=== PATIENT | female | born 1950 | race Caucasian/White ===

== ENCOUNTER 2018-01-21 16:24 | Emergency (ER) | payer OTHER, MEDICARE ==
[2018-01-21] MEDS ORDERED: HYDROmorphONE/DILAUDID 1 MG/ML INJ IVP ONE (16:49)
[2018-01-21] MEDS ORDERED: ONDANSETRON 4 MG/2 ML VIAL IVP ONE ×2 (16:49→18:33)
[2018-01-21] MEDS ORDERED: NS 1,000 ML IV ONE (16:49)
[2018-01-21 16:57] VITALS: TEMP 98.4
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
[2018-01-21 17:04] LABS: PLATELET COUNT 315 10^3/uL (150-400)
[2018-01-21 17:14] LABS: INR 0.92 (0.83-1.16); PROTIME(PATIENT) 12.6 SEC (12.0-15.0)
[2018-01-21] MEDS ORDERED: IOPAMIDOL (ISOVUE-300) 100 ML BTL ONE (17:29)
[2018-01-21 21:25] VITALS: O2SAT 97
[2018-01-21] MEDS ORDERED: KETOROLAC 30 MG/1 ML SDV IVP ONE (21:27)
[2018-01-21 21:40] VITALS: BP 130/70; PULSE 72; RESP 13
== END 2018-01-21 21:56 | disposition home or self-care (01) ==
LOC: EDUNIT#
DX: S19.9XXA Unspecified injury of neck, initial encounter (principal); V89.2XXA Person injured in unspecified motor-vehicle accident, traffic, initial encounter; Y92.410 Unspecified street and highway as the place of occurrence of the external cause
CPT/HCPCS: 96374; G0480; J1885; J2405; Q9967